=== PATIENT | male | born 1985 | race Hispanic/Latino ===

== ENCOUNTER → 2021-07-15 | Outpatient (CLI) | payer OTHER ==
[~2021-07-15] MED LIST: IOHEXOL-350 75 ML VIAL IV ONE
== END | disposition home or self-care (01) ==
LOC: EEVIPCON 09:12 → RAH 09:12
PROVIDERS: ATTEND Family Medicine
DX: K63.2 Fistula of intestine (principal); K80.20 Calculus of gallbladder without cholecystitis without obstruction; M54.50 Low back pain, unspecified; R51.9 Headache, unspecified; Z98.890 Other specified postprocedural states
CPT/HCPCS: 74177; Q9967